=== PATIENT | female | born 1975 | race Caucasian/White ===

== ENCOUNTER 2016-10-08 14:46 | Observation (INO) | payer SELFPAY ==
[2016-10-08 14:47] VITALS: BP 122/77; PULSE 72; RESP 18; TEMP 98.1; O2SAT 98
[2016-10-08] MEDS ORDERED: SODIUM CHLOR 0.9% 1000 ML INJ 1,000 ML IV SCH (15:18)
--- NOTE | 2016-10-08 15:20 | PD ---
HPI Chief Complaint: Chest Pain Time Seen by Provider: 15:20 Travel History International Travel<30 days: No Contact w/Intl Traveler<30days: No Traveled to known affect area: No History of Present Illness HPI 41-year-old female presents to the emergency department for evaluation of left anterior chest tightness and palpitations. The patient states that intermittently for the past several weeks she's had what she describes as "muscle spasms" in her left anterior chest wall. States that this got worse today. States that also today she began experiencing palpitations with shortness of breath. No aggravating or alleviating factors. Symptoms are mild in severity. 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 Denies any history of heart disease or CT. Denies any history of high blood pressure, high cholesterol, diabetes. Denies taking any medications regularly. Denies any family history of cardiac disease. States that she drinks alcohol about 3-4 times per week, last drink yesterday for alcoholic beverages. States the last night she drank 3 Coca-Cola's because is all that they had in the hotel room. Denies drug use. She states that she is here visiting for bike week from [place]. No other complaints. PFSH Past Medical History COPD: Yes Respiratory: Yes (EARLY STAGES OF COPD) Tetanus Vaccination: Unknown ?: Not Past Surgical History Gynecologic Surgery: Yes Social History Alcohol Use: Yes Tobacco Use: Yes Substance Use: No Allergies-Medications (Allergen,Severity, Reaction): Coded Allergies: No Known Allergies (Unverified , 10/08/16) Review of Systems Except as stated in HPI: all other systems reviewed are Neg Physical Exam Narrative GENERAL: Well-nourished and well-developed pleasant female patient in no acute distress who is nontoxic appearing. SKIN: Warm and dry. HEAD: Normocephalic and atraumatic. EYES: No injection, drainage, or hyphema noted. PERRLA. EOMI. ENT: No nasal drainage noted. Oropharynx is clear. NECK: Supple and the trachea is midline. CARDIOVASCULAR: Regular rate and rhythm. RESPIRATORY: Breath sounds are equal bilaterally with no accessory muscle use, wheezing, rhonchi, or crackles. GASTROINTESTINAL: Abdomen is soft, non-tender, and nondistended. MUSCULOSKELETAL: No obvious deformities, swelling, cyanosis, or ecchymosis is present throughout the upper and lower extremities. Patient has full range of motion without any signs of neurovascular compromise. NEUROLOGICAL: Awake, alert, and oriented. Normal speech and gait. Cranial nerves are grossly intact. Data Data Last Documented VS Vital Signs Date Time Temp Pulse Resp B/P Pulse Ox O2 Delivery O2 Flow Rate FiO2 10/08/16 15:21 99 10/08/16 14:56 Room Air 10/08/16 14:47 98.1 72 18 122/77 Orders Ckmb (Isoenzyme) Profile (10/08/16 15:18) Complete Blood Count With Diff (10/08/16 15:18) Comprehensive Metabolic Panel (10/08/16 15:18) Magnesium (Mg) (10/08/16 15:18) Prothrombin Time / Inr (Pt) (10/08/16 15:18) Act Partial Throm Time (Ptt) (10/08/16 15:18) Troponin I (10/08/16 15:18) Lipase (10/08/16 15:18) Chest, Single Ap (10/08/16 15:18) Ecg Monitoring (10/08/16 15:18) Iv Access Insert/Monitor (10/08/16 15:18) Oximetry (10/08/16 15:18) Aspirin Chew (Aspirin Chew) (10/08/16 15:30) Sodium Chloride 0.9% Flush (Ns Flush) (10/08/16 15:30) Sodium Chlor 0.9% 1000 Ml Inj (Ns 1000 M (10/08/16 15:18) Admit Order (Ed Use Only) (10/08/16 16:28) Labs Laboratory Tests Test 10/08/16 15:35 White Blood Count 7.4 TH/MM3 Red Blood Count 4.45 MIL/MM3 Hemoglobin 12.4 GM/DL Hematocrit 37.7 % Mean Corpuscular Volume 84.8 FL Mean Corpuscular Hemoglobin 27.8 PG Mean Corpuscular Hemoglobin 32.8 % Concent Red Cell Distribution Width 14.7 % Platelet Count 151 TH/MM3 Mean Platelet Volume 9.4 FL Neutrophils (%) (Auto) 51.0 % Lymphocytes (%) (Auto) 38.6 % Monocytes (%) (Auto) 8.2 % Eosinophils (%) (Auto) 2.0 % Basophils (%) (Auto) 0.2 % Neutrophils # (Auto) 3.8 TH/MM3 Lymphocytes # (Auto) 2.9 TH/MM3 Monocytes # (Auto) 0.6 TH/MM3 Eosinophils # (Auto) 0.1 TH/MM3 Basophils # (Auto) 0.0 TH/MM3 CBC Comment DIFF FINAL Differential Comment Prothrombin Time 10.4 SEC Prothromb Time International 0.9 RATIO Ratio Activated Partial 24.6 SEC Thromboplast Time Sodium Level 141 MEQ/L Potassium Level 3.9 MEQ/L Chloride Level 107 MEQ/L Carbon Dioxide Level 25.2 MEQ/L Anion Gap 9 MEQ/L Blood Urea Nitrogen 18 MG/DL Creatinine 1.11 MG/DL Estimat Glomerular Filtration 54 ML/MIN Rate Random Glucose 101 MG/DL Calcium Level 8.5 MG/DL Magnesium Level 1.8 MG/DL Total Bilirubin 0.3 MG/DL Aspartate Amino Transf 10 U/L (AST/SGOT) Alanine Aminotransferase 17 U/L (ALT/SGPT) Alkaline Phosphatase 46 U/L Total Creatine Kinase 68 U/L Troponin I LESS THAN 0.02 NG/ML Total Protein 6.6 GM/DL Albumin 3.6 GM/DL Lipase 109 U/L [facility] Medical Decision Making Medical Screen Exam Complete: Yes Emergency Medical Condition: Yes Differential Diagnosis Arrhythmia versus ACS versus pleurisy versus palpitations Narrative Course 41-year-old female presents to the emergency department for evaluation of chest tightness and heart palpitations. Patient is afebrile, vital signs are stable. Physical examination is unremarkable. EKG shows normal sinus rhythm with no acute ST elevations or depressions. IV access is obtained, labs were drawn and sent. Chest x-ray is negative for any acute abnormalities. CBC is unremarkable. CMP shows slightly elevated creatinine of 1.11, GFR 54. Troponin is less than 0.02. Coags are unremarkable. Patient has remained stable and without complaint while here in the emergency department. She was watched on cardiac telemetry and noted to have sinus bradycardia down to 46 bpm. She is reporting that she's been told she has a slow heart rate in the past. Abrasion offered admission to chest pain center for repeat cardiac enzymes, EKGs and possible stress testing and elects to stay. I discussed the case with my attending physician Dr. Rosario who is aware of the patients history, physical examination findings, and treatment plan. Diagnosis Primary Impression: Chest pain Qualified Code: R07.9 - Chest pain, unspecified type Additional Impression: Palpitations Admitting Information Admitting Physician Requests: Observation Lakesha Bryant Oct 08, 2016 15:20
[2016-10-08 15:21] VITALS: O2SAT 99
[2016-10-08] MEDS ORDERED: ASPIRIN 81 MG CHEW TAB PO ONE (15:30)
[2016-10-08] MEDS ORDERED: SODIUM CHLORIDE 0.9% FLUSH 5 ML FLUSH IVF PRN ×2 (15:30→17:15)
--- NOTE | 2016-10-08 15:45 | RADRPT ---
EXAM DATE/TIME: 10/08/2016 15:29 [facility] COMPARISON: No previous studies available for comparison. INDICATIONS : Left sided chest pain. MEDICAL HISTORY : Chronic obstructive pulmonary disease. SURGICAL HISTORY : None. ENCOUNTER: Initial ACUITY: 3 days PAIN SCORE: 8/10 LOCATION: chest FINDINGS: A single view of the chest demonstrates the lungs to be symmetrically aerated without evidence of mas s, infiltrate or effusion. The cardiomediastinal contours are unremarkable. Osseous structures are intact. CONCLUSION: No acute disease. Jadiel Starkey MD on October 08, 2016 at 15:43 Board Certified Radiologist. This report was verified electronically.
[2016-10-08 15:55] LABS: AUTOMATED NEUTROPHIL # 3.8 TH/MM3 (1.8-7.7); BASOPHIL % 0.2 % (0.0-2.0); EOSINOPHIL # 0.1 TH/MM3 (0-0.4); HEMATOCRIT 37.7 % (35.0-46.0); HEMO FLAGS DIFF FINAL; LYMPH % 38.6 % (9.0-44.0); LYMPHOCYTE # 2.9 TH/MM3 (1.0-4.8); MEAN CELL VOLUME 84.8 FL (80.0-100.0); MEAN CORPUSCULAR HEMOGLOBIN 27.8 PG (27.0-34.0); MEAN CORPUSCULAR HGB CONC 32.8 % (32.0-36.0); MONO % 8.2 % (0.0-8.0); PLATELET COUNT 151 TH/MM3 (150-450); RED BLOOD COUNT 4.45 MIL/MM3 (4.00-5.30); RED CELL DISTRIBUTION WIDTH 14.7 % (11.6-17.2); WHITE BLOOD COUNT 7.4 TH/MM3 (4.0-11.0)
[2016-10-08 16:03] LABS: ANION GAP 9 MEQ/L (5-15); AST (GOT) 10 U/L (15-37); BICARBONATE 25.2 MEQ/L (21.0-32.0); BLOOD UREA NITROGEN 18 MG/DL (7-18); CHLORIDE 107 MEQ/L (98-107); GLOMERULAR FILTRATION RATE 54 ML/MIN (>89); MAGNESIUM 1.8 MG/DL (1.5-2.5); POTASSIUM 3.9 MEQ/L (3.5-5.1); SODIUM (NA) 141 MEQ/L (136-145)
[2016-10-08 16:04] LABS: APTT (PATIENT) 24.6 SEC (24.3-30.1); INTERNATIONAL NORMALIZED RATIO 0.9 RATIO; PROTHROMBIN TIME - PATIENT 10.4 SEC (9.8-11.6)
[2016-10-08 16:08] LABS: ALKALINE PHOSPHATASE 46 U/L (45-117); ALT (GPT) 17 U/L (10-53); TOTAL BILIRUBIN ADULT 0.3 MG/DL (0.2-1.0)
[2016-10-08 16:09] LABS: CREATINE KINASE 68 U/L (26-192)
--- NOTE | 2016-10-08 16:49 | PD ---
Physical Exam Date Seen by Provider: Oct 08, 2016 Time Seen by Provider: 15:30 Narrative I, Dr. Rosario, have reviewed the advance practice practitioner's documentation and am in agreement, met with the patient face to face, made the diagnosis, and the medical decision making was done by me. *My assessment and Findings: Patient seen and evaluated with PA, please see PA note for further details. Here with intermittent sharp chest pains that has become more constant according to the patient. Currently a 6 out of 10. Cardiac initial pulmonary exam is unremarkable. Abdomen is benign on exam. Initial EKG denies any signs of acute ST-T changes. Laboratory Tests Test 10/08/16 15:35 Monocytes (%) (Auto) 8.2 % (0.0-8.0) Creatinine 1.11 MG/DL (0.50-1.00) Estimat Glomerular Filtration 54 ML/MIN (>89) Rate Aspartate Amino Transf 10 U/L (15-37) (AST/SGOT) Troponin I LESS THAN 0.02 NG/ML (0.02-0.05) Patient does have some occasional runs of bradycardia which appears to be a sinus bradycardia when she sleeps. She has had history of obstructive sleep apnea. I do not see any significant other dysrhythmia. At this point, the patient states chest pain has been getting worse, my plan would be to admit the patient for further evaluation in the chest pain center. Data Data Last Documented VS Vital Signs Date Time Temp Pulse Resp B/P Pulse Ox O2 Delivery O2 Flow Rate FiO2 10/08/16 15:21 99 10/08/16 14:56 Room Air 10/08/16 14:47 98.1 72 18 122/77 Orders Ckmb (Isoenzyme) Profile (10/08/16 15:18) Complete Blood Count With Diff (10/08/16 15:18) Comprehensive Metabolic Panel (10/08/16 15:18) Magnesium (Mg) (10/08/16 15:18) Prothrombin Time / Inr (Pt) (10/08/16 15:18) Act Partial Throm Time (Ptt) (10/08/16 15:18) Troponin I (10/08/16 15:18) Lipase (10/08/16 15:18) Chest, Single Ap (10/08/16 15:18) Ecg Monitoring (10/08/16 15:18) Iv Access Insert/Monitor (10/08/16 15:18) Oximetry (10/08/16 15:18) Aspirin Chew (Aspirin Chew) (10/08/16 15:30) Sodium Chloride 0.9% Flush (Ns Flush) (10/08/16 15:30) Sodium Chlor 0.9% 1000 Ml Inj (Ns 1000 M (10/08/16 15:18) Admit Order (Ed Use Only) (10/08/16 16:28) Labs Laboratory Tests Test 10/08/16 15:35 White Blood Count 7.4 TH/MM3 Red Blood Count 4.45 MIL/MM3 Hemoglobin 12.4 GM/DL Hematocrit 37.7 % Mean Corpuscular Volume 84.8 FL Mean Corpuscular Hemoglobin 27.8 PG Mean Corpuscular Hemoglobin 32.8 % Concent Red Cell Distribution Width 14.7 % Platelet Count 151 TH/MM3 Mean Platelet Volume 9.4 FL Neutrophils (%) (Auto) 51.0 % Lymphocytes (%) (Auto) 38.6 % Monocytes (%) (Auto) 8.2 % Eosinophils (%) (Auto) 2.0 % Basophils (%) (Auto) 0.2 % Neutrophils # (Auto) 3.8 TH/MM3 Lymphocytes # (Auto) 2.9 TH/MM3 Monocytes # (Auto) 0.6 TH/MM3 Eosinophils # (Auto) 0.1 TH/MM3 Basophils # (Auto) 0.0 TH/MM3 CBC Comment DIFF FINAL Differential Comment Prothrombin Time 10.4 SEC Prothromb Time International 0.9 RATIO Ratio Activated Partial 24.6 SEC Thromboplast Time Sodium Level 141 MEQ/L Potassium Level 3.9 MEQ/L Chloride Level 107 MEQ/L Carbon Dioxide Level 25.2 MEQ/L Anion Gap 9 MEQ/L Blood Urea Nitrogen 18 MG/DL Creatinine 1.11 MG/DL Estimat Glomerular Filtration 54 ML/MIN Rate Random Glucose 101 MG/DL Calcium Level 8.5 MG/DL Magnesium Level 1.8 MG/DL Total Bilirubin 0.3 MG/DL Aspartate Amino Transf 10 U/L (AST/SGOT) Alanine Aminotransferase 17 U/L (ALT/SGPT) Alkaline Phosphatase 46 U/L Total Creatine Kinase 68 U/L Troponin I LESS THAN 0.02 NG/ML Total Protein 6.6 GM/DL Albumin 3.6 GM/DL Lipase 109 U/L [facility] Medical Record Reviewed: Yes Supervised Visit with CARL: Yes Diagnosis Primary Impression: Chest pain Qualified Code: R07.9 - Chest pain, unspecified type Additional Impression: Palpitations Admitting Information Admitting Physician Requests: it Kristin Rosario MD Oct 08, 2016 16:49
--- NOTE | 2016-10-08 17:07 | HHI.HP ---
HPI Primary Care Physician No Primary Care Physician Chief Complaint Chest pain History of Present Illness This is a 41-year-old female that presents to ED via private vehicle with a complaint of 2 weeks of intermittent chest discomfort. She is here on vacation from bi week with her . She describes a left-sided discomfort that will last less than a minute at a time but would recur a few times a day and it did that for a couple weeks. However the last 2 days the discomfort has been constant. Nothing seems to worsen the discomfort. She has no associated shortness breath, nausea, or diaphoresis. She denies ever having a cardiac workup. She has had a nonproductive cough for the past month. She states that her has been telling her that she has been coughing a lot. No fevers or chills. Denies . Review of Systems General: Patient denies fevers, chills recent, and recent travel HEENT: Patient denies headache, sore throat, difficulty swallowing. Cardiovascular: Has the chest discomfort as mentioned above. Denies sensation of heart beating rapidly or irregularly. No syncope. Denies diaphoresis. Respiratory: Patient has had a nonproductive cough for about a month. Denies wheezing or hemoptysis. Denies shortness of breath or inspirational chest discomfort. GI: Patient denies nausea, vomiting, diarrhea, abdominal pain, bloody stools. Musculoskeletal: Patient denies joint pain or edema. Denies calf pain or edema. Neurovascular: Patient denies numbness, tingling, weakness in extremities. Denies headache. Endocrine: Denies polyuria and polydipsia. Hematologic: Denies easy bruising. Skin: Denies rash or itching. Past Family Social History Allergies: Coded Allergies: No Known Allergies (Unverified , 10/08/16) Past Medical History Tobacco abuse. Denies hypertension, hyperlipidemia, diabetes, and known CAD. Past Surgical History Tubal ligation. Reported Medications Denies medications. Active Ordered Medications Current Medications Medications (Trade) Dose Ordered Sig/Ean Route Start Time Stop Time Status Last Admin (NS Flush) 2 ml UNSCH PRN IVF 10/08/16 15:30 10/08/16 15:43 Family History Denies family history of CAD. Social History Patient smokes about a pack a day for 20 years. She also average a few beers 3 times a week. She smokes marijuana occasionally last time was a couple days ago. She and her are here visiting from [place] for bike week. Physical Exam Vital Signs Vital Signs Date Time Temp Pulse Resp B/P Pulse Ox O2 Delivery O2 Flow Rate FiO2 10/08/16 15:21 99 10/08/16 14:56 Room Air 10/08/16 14:47 98.1 72 18 122/77 98 Room Air Physical Exam GENERAL: This is a well-nourished, well-developed patient, in no apparent distress. Patient speaks in clear complete sentences. Patient is pleasant. HEENT: Head is atraumatic and normocephalic. Neck is supple without lymphadenopathy and trachea is midline. No JVD or carotid bruits. CARDIOVASCULAR: Regular rate and rhythm without murmurs, gallops, or rubs. RESPIRATORY: Left anterior chest wall is tender to palpate. Clear to auscultation. Breath sounds equal bilaterally. No wheezes, rales, or rhonchi. No use of accessory muscles. GASTROINTESTINAL: Abdomen is nontender, nondistended. Abdomen soft. No obvious pulsatile mass or bruit. No CVA tenderness. Strong femoral pulses bilaterally. Normal bowel sounds in all quadrants. MUSCULOSKELETAL: Patient is moving upper and lower extremities freely. No calf tenderness or edema, no Homans sign. Strong pulses in upper and lower extremities. NEUROLOGICAL: Patient is alert and oriented. Cranial nerves 2-12 are grossly intact. No focal deficits and speech is clear. SKIN: No rash and turgor is normal. Laboratory Laboratory Tests Test 10/08/16 15:35 White Blood Count 7.4 Red Blood Count 4.45 Hemoglobin 12.4 Hematocrit 37.7 Mean Corpuscular Volume 84.8 Mean Corpuscular Hemoglobin 27.8 Mean Corpuscular Hemoglobin 32.8 Concent Red Cell Distribution Width 14.7 Platelet Count 151 Mean Platelet Volume 9.4 Neutrophils (%) (Auto) 51.0 Lymphocytes (%) (Auto) 38.6 Monocytes (%) (Auto) 8.2 Eosinophils (%) (Auto) 2.0 Basophils (%) (Auto) 0.2 Neutrophils # (Auto) 3.8 Lymphocytes # (Auto) 2.9 Monocytes # (Auto) 0.6 Eosinophils # (Auto) 0.1 Basophils # (Auto) 0.0 CBC Comment DIFF FINAL Differential Comment Prothrombin Time 10.4 Prothromb Time International 0.9 Ratio Activated Partial 24.6 Thromboplast Time Sodium Level 141 Potassium Level 3.9 Chloride Level 107 Carbon Dioxide Level 25.2 Anion Gap 9 Blood Urea Nitrogen 18 Creatinine 1.11 Estimat Glomerular Filtration 54 Rate Random Glucose 101 Calcium Level 8.5 Magnesium Level 1.8 Total Bilirubin 0.3 Aspartate Amino Transf 10 (AST/SGOT) Alanine Aminotransferase 17 (ALT/SGPT) Alkaline Phosphatase 46 Total Creatine Kinase 68 Troponin I LESS THAN 0.02 Total Protein 6.6 Albumin 3.6 Lipase 109 Result Diagram: 10/08/16 1535 10/08/16 1535 Imaging Last Impressions Chest X-Ray 10/08/16 1518 Signed Impressions: Service Date/Time: September 15:29 - CONCLUSION: No acute disease. Jadiel Stareky MD Course Initial EKG has sinus rhythm without ST depressions or elevations. Assessment and Plan Assessment and Plan * Atypical chest pain: Patient will continue to have serial cardiac enzymes and EKGs for ruling out purposes. She will be evaluated by Dr. Damon cardiology and the chest pain center in the morning. At that time we will determine if patient needs stress testing or not. * Tobacco abuse: Patient has been counseled on importance of smoking cessation. Minh De La Paz Oct 08, 2016 17:07
[2016-10-08] MEDS ORDERED: cloNIDine HCL 0.1 MG TAB PO PRN (17:15)
[2016-10-08] MEDS ORDERED: ACETAMINOPHEN/HYDROcodone 325 MG/7.5 MG TAB PO PRN (17:15)
[2016-10-08] MEDS ORDERED: ALPRAZolam 0.25 MG TAB PO PRN (17:15)
[2016-10-08] MEDS ORDERED: RESP: ALBUTEROL 2.5 MG/IPRATROPIUM 0.5 MG NEB (PRN) INH (17:15)
[2016-10-08] MEDS ORDERED: ACETAMINOPHEN 500 MG CPLT PO PRN (17:15)
[2016-10-08] MEDS ORDERED: ONDANSETRON HCL 4 MG/2 ML VIAL IV PRN (17:15)
[2016-10-08 17:20] VITALS: O2SAT 98
[2016-10-08] MEDS: PANTOPRAZOLE SOD 40 MG DELAYED RELEASE TAB PO SCH (18:03)
[2016-10-08 18:14] LABS: CREATINE KINASE 56 U/L (26-192)
[2016-10-08 19:42] LABS: CREATINE KINASE 57 U/L (26-192)
[2016-10-08 19:43] VITALS: BP 108/55; PULSE 51; RESP 18; TEMP 98.1; O2SAT 100
[2016-10-08 20:02] VITALS: BP 115/62; PULSE 57; RESP 20; TEMP 98; O2SAT 99
[2016-10-08] MEDS: SODIUM CHLORIDE 0.9% FLUSH 5 ML FLUSH IVF SCH (21:00)
--- NOTE | 2016-10-08 21:10 | EKG ---
Date Performed: 10/08/2016 Time Performed: 15:04:15 PTAGE: 41 years EKG: Sinus rhythm NORMAL ECG NO PREVIOUS TRACING DOCTOR: Ayala Patel Interpretating Date/Time 10/08/2016 21:08:49
[2016-10-08 23:14] VITALS: PULSE 57
[2016-10-09] VITALS (7 sets, daily range): BP systolic 97–114; BP diastolic 50–73; PULSE 42–55; RESP 17–18; TEMP 97.4; O2SAT 94–99
[2016-10-09] MEDS ORDERED: KETOROLAC TROMETHAMINE 30 MG/ML (IVP) VIAL IVP ONE (08:15)
[2016-10-09] MEDS ORDERED: ASPIRIN 325 MG TAB PO SCH (09:00)
[2016-10-09] MEDS: SODIUM CHLORIDE 0.9% FLUSH 5 ML FLUSH IVF SCH (09:17)
[2016-10-09] MEDS: PANTOPRAZOLE SOD 40 MG DELAYED RELEASE TAB PO SCH (09:17)
--- NOTE | 2016-10-09 12:00 | HHI.DCPOC ---
Discharge Care Plan Diagnosis: (1) Chest pain, atypical (2) Tobacco abuse Goals to Promote Your Health * To prevent worsening of your condition and complications * To maintain your health at the optimal level Directions to Meet Your Goals Take your medications as prescribed Follow your dietary instruction Follow activity as directed Keep your appointments as scheduled Take your immunizations and boosters as scheduled If your symptoms worsen call your PCP, if no PCP go to Urgent Care Center or Emergency Room Smoking is Dangerous to Your Health. Avoid second hand smoke Call the 24-hour hour crisis hotline for domestic abuse at Minh De La Paz Oct 09, 2016 12:00
--- NOTE | 2016-10-09 14:26 | EKG ---
Date Performed: 10/08/2016 Time Performed: 21:49:38 PTAGE: 41 years EKG: SINUS BRADYCARDIA BORDERLINE ECG PREVIOUS TRACING : 10/08/2016 19.41 Since previous tracing, no significant change noted DOCTOR: Josse Damon Interpretating Date/Time 10/09/2016 14:24:58
--- NOTE | 2016-10-09 14:26 | EKG ---
Date Performed: 10/08/2016 Time Performed: 19:41:57 PTAGE: 41 years EKG: SINUS BRADYCARDIA BORDERLINE ECG PREVIOUS TRACING : 10/08/2016 15.04 Since previous tracing, no significant change noted DOCTOR: Josse Damon Interpretating Date/Time 10/09/2016 14:25:22
== END 2016-10-09 12:20 | disposition home or self-care (01) ==
LOC: NEPC 14:46 → NEDA 16:29 → NEPFCDU 19:55
PROVIDERS: ADMIT Internal Medicine Interventional Cardiology; ATTEND Internal Medicine Interventional Cardiology
DX: R07.89 Other chest pain (principal); F17.200 Nicotine dependence, unspecified, uncomplicated; F12.90 Cannabis use, unspecified, uncomplicated; J44.9 Chronic obstructive pulmonary disease, unspecified
CPT/HCPCS: 71010; 80053; 82550; 83690; 83735; 84484; 85025; 85610; 85730; 93005; 96360; 99285; G0378; J1885; J7030